=== PATIENT | male | born 2000 | race African-American/Black ===

== ENCOUNTER 2018-10-09 16:57 | Emergency (ER) | payer SELFPAY ==
[~2018-10-09] VITALS: Ht 182.9 cm; Wt 90.3 kg
[2018-10-09 18:00] VITALS: BP 109/57
[2018-10-09 18:11] LABS: BASO % 1 % (0-3); EOS # 0.3 x10^3/uL (0.0-0.7); EOS % 3 % (0-3); HEMATOCRIT 43.7 % (39.0-53.0); HEMOGLOBIN 14.6 g/dL (13.0-17.5); LYMPH # 1.9 x10^3/uL (1.0-4.8); LYMPH % 19 % (24-48); MEAN CORPUSCULAR HEMOGLOBIN 28 pg (25-35); MEAN CORPUSCULAR HGB CONC 34 g/dL (31-37); MEAN CORPUSCULAR VOLUME 83 fL (79-100); MONO # 0.6 x10^3/uL (0.0-1.1); MONO % 6 % (0-9); NEUT # 7.1 x10^3uL (1.8-7.7); NEUT % 72 % (31-73); PLATELET COUNT 238 x10^3/uL (140-400); RED BLOOD COUNT 5.24 x10^6/uL (4.30-5.70); WHITE BLOOD COUNT 9.8 x10^3/uL (4.0-11.0)
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
[2018-10-09] MEDS ORDERED: IV NORMAL SALINE 1000ML BAG 1,000 ML IV ONE (18:15)
[2018-10-09 18:28] LABS: CALCIUM 9.3 mg/dL (8.5-10.1); CREATININE 1.3 mg/dL (0.7-1.3); GFR 85.2
[2018-10-09 19:35] LABS: BILIRUBIN,URINE NEGATIVE (NEG); CLARITY,URINE CLEAR; COLOR,URINE YELLOW; NITRITE,URINE NEGATIVE (NEG); PROTEIN,URINE NEGATIVE (NEG-TRACE)
[2018-10-09 19:41] LABS: BARBITURATES NEG (NEG); BENZODIAZEPINES NEG (NEG); CANNABINOIDS POS (NEG); COCAINE NEG (NEG); METHADONE NEG (NEG); OPIATES NEG (NEG); PHENCYCLIDINE NEG (NEG)
[2018-10-09 19:42] LABS: AMPHETAMINE/METHAMPHETAMINE NEG (NEG)
[2018-10-09 19:47] LABS: BACTERIA,URINE FEW /HPF (0-FEW); SQUAMOUS EPITHELIAL CELL,UR FEW /LPF
--- NOTE | 2018-10-10 00:19 | RAD ---
AP portable chest radiograph 10/09/2018 Clinical History: Syncope. An AP erect portable digital radiograph of the chest was obtained. No previous studies are available for comparison. The cardiac and mediastinal silhouettes are within normal limits in size and configuration. No acute pulmonary infiltrate is seen. No pleural effusion or pneumothorax is noted. The osseous structures are grossly intact. IMPRESSION: No acute abnormality is seen. Electronically signed by: Leon Mark MD (10/10/2018 12:17 AM) [facility]
--- NOTE | 2018-10-10 10:30 | EKG ---
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
== END 2018-10-09 20:07 | disposition home or self-care (01) ==
LOC: ER 16:57
DX: E86.0 Dehydration (principal); R55 Syncope and collapse; G89.29 Other chronic pain; M54.9 Dorsalgia, unspecified
CPT/HCPCS: 36415; 71045; 80048; 80307; 81001; 84484; 85025; 87086; 93005; 96360; 99285; G0480; J7030

== ENCOUNTER 2020-09-23 10:54 | Emergency (ER) | payer SELFPAY ==
[~2020-09-23] VITALS: Ht 185.4 cm; Wt 75.0 kg
[2020-09-23] MEDS ORDERED: NAPR-514 PO (12:15)
[2020-09-23] MEDS ORDERED: CHLO15MO2 SWSP (12:15)
[2020-09-23] MEDS ORDERED: CLIN150C15 PO (12:15)
--- NOTE | 2020-09-23 12:16 | ED.ADGEN ---
Past Medical History Past Medical History: No Pertinent History Past Surgical History: No Surgical History Smoking Status: Never Smoker Alcohol Use: Occasionally Drug Use: Marijuana General Adult EDM: Chief Complaint: FACE PROBLEM HPI: HPI: Patient is a 20 year old AA male who presents to the emergency department with complaints of lower right dental pain and right lower facial swelling since yesterday. Patient denies any fever, body aches, fatigue, nausea, vomiting, cough, sore throat, abdominal pain, or shortness of breath. Patient states the pain increases when he opens his mouth. Patient reports a history of dental caries and broken teeth but does not have a dentist. Patient currently rates pain 9 out of 10 on the pain scale, he denies any alleviating factors, the pain is worse with palpation and movement. Review of Systems: Review of Systems: Complete ROS is negative unless otherwise noted in HPI. Allergies: Allergies: Allergies Coded Allergies Type Severity Reaction Last Updated Verified No Known Drug Allergies 10/09/18 No Physical Exam: PE: See Above Constitutional: Well developed, well nourished, no acute distress, non-toxic appearance. [] HENT: Normocephalic, atraumatic, bilateral external ears normal, bilateral TMs normal, nose normal; broken tooth to the right mandible with diffuse dental caries, no visible dental abscess, diffuse gingival erythema and edema, swelling to the left mandible in the area of the dental infection, no trismus. [] Eyes: PERRLA, EOMI, conjunctiva normal, no discharge. [] Neck: Normal range of motion, supple, no stridor. [] Cardiovascular:Heart rate regular rhythm Lungs & Thorax: Respirations even and unlabored, no retractions, no respiratory distress Skin: Warm, dry, no erythema, no rash. [] Extremities: No cyanosis, ROM intact, no edema. [] Neurologic: Alert and oriented X 3, no focal deficits noted. [] Psychologic: Affect normal, judgement normal, mood normal. [] Current Patient Data: Vital Signs: Vital Signs Date Time Temp Pulse Resp B/P (MAP) Pulse Ox O2 Delivery O2 Flow Rate FiO2 09/23/20 12:20 62 16 141/90 (107) 99 Room Air 09/23/20 11:27 98.2 98.2 EKG: EKG: [] Heart Score: C/O Chest Pain: No Risk Scores: Score 0 - 3: 2.5% MACE over next 6 weeks - Discharge Home Score 4 - 6: 20.3% MACE over next 6 weeks - Admit for Clinical Observation Score 7 - 10: 72.7% MACE over next 6 weeks - Early Invasive Strategies Radiology/Procedures: Radiology/Procedures: [] Course & Med Decision Making: Course & Med Decision Making Pertinent Labs and Imaging studies reviewed. (See chart for details) Patient presents emergency department with complaints of acute right lower facial swelling and right dental pain after eating fish yesterday. Offered CT and labs. Patient declined at this time. Will treat with clindamycin, Peridex, and naproxen. Encouraged patient to return to the ER if his symptoms worsened or fever develop. Will prescribe patient with a list of dentist in the area that provide reduced rate dental care. Patient verbalized an understanding of home care, medications, follow-up, and return to ED instructions and was in agreement with the plan of care. [] Dragon Disclaimer: Dragon Disclaimer: This electronic medical record was generated, in whole or in part, using a voice recognition dictation system. Departure Departure Impression: Primary Impression: Dental infection Additional Impression: Right facial swelling Disposition: HOME / SELF CARE / HOMELESS Condition: STABLE Referrals: NO PCP (PCP) Patient Instructions: Dental Abscess, Facial Infection Additional Instructions: Fill prescription(s) and use as directed. Apply warm moist packs to the affected area to help with discomfort and swelling. Follow up with dentist using the referral list provided. Return to the ER if symptoms worsen or fever develops. [facility] [address] [place] [address] [facility] [address] [place] [address] [facility] [address] [place] [address] [facility] [address] [place] [address] [facility] [address] [place] [address] [facility] [address] [place] [address] [facility] [address] [place] [address] [facility] [address] [place] [address] [facility] [address] [place] [address] [facility] [address] [place] [address] Scripts Chlorhexidine Gluconate (PERIDEX) 15 Ml Mouthwash 15 ML SWSP BID for 10 Days, #1 BOT 0 Refills Dyer your teeth before use of this medication and rinse thoroughly after using the medication as it may stain your teeth. Prov: BENJY VALLADARES APRN 09/23/20 Naproxen (NAPROXEN) 500 Mg Tablet 1 TAB PO BID PRN for PAIN for 10 Days, #20 TAB 0 Refills Prov: BENJY VALLADARES APRN 09/23/20 Clindamycin Hcl (CLINDAMYCIN HCL) 150 Mg Capsule 450 MG PO TID for 7 Days, #63 CAP 0 Refills Prov: BENJY VALLADARES APRN 09/23/20 Attending Signature Attending Signature I have reviewed the PA/LIFE SKILLS WORKER's note and plan of care. I was available for consultation as needed during the patient's visit in the emergency department. I agree with the clinical impression, plan, and disposition. Problem Qualifiers BENJY VALLADARES APRN September 23, 2020 12:16 HARSHAD RIZVI DO September 23, 2020 15:01
[2020-09-23 12:20] VITALS: BP 141/90
== END 2020-09-23 12:24 | disposition home or self-care (01) ==
LOC: ER 10:54
DX: K04.7 Periapical abscess without sinus (principal)
CPT/HCPCS: 99283